=== PATIENT | female | born 1995 | race American Indian/Alaskan Native ===

== ENCOUNTER 2017-11-08 16:18 | Emergency (ER) | payer OTHER ==
[~2017-11-08] VITALS: Ht 177.8 cm; Wt 90.7 kg
[~2017-11-08 16:18] MED LIST: PEPCID20 MG PO; PNEU16DI2; PRENATABS FA T1 EACH
== END 2017-11-08 20:10 | disposition home or self-care (01) ==
LOC: ER 16:18
DX: O20.8 Other hemorrhage in early pregnancy (principal); Z34.81 Encounter for supervision of other normal pregnancy, first trimester

== ENCOUNTER 2017-11-16 03:36 | Emergency (ER) | payer OTHER ==
[~2017-11-16] VITALS: Ht 165.1 cm; Wt 79.4 kg
[2017-11-16] MEDS ORDERED: FOLIC ACID0.4 MG (03:56)
== END 2017-11-16 07:33 | disposition home or self-care (01) ==
LOC: ER 03:36
DX: O20.8 Other hemorrhage in early pregnancy (principal); Z34.81 Encounter for supervision of other normal pregnancy, first trimester

== ENCOUNTER → 2018-06-17 | Outpatient (CLI) | payer OTHER ==
[~2018-06-17] MED LIST changes: +FOLIC ACID0.4 MG; +PERCOCET 5-3251 EACH PO; +PRENATAL + DHA1 EAC1; +SURFAK240 M1 PO
== END | disposition home or self-care (01) ==
LOC: NST 22:12
DX: O48.0 Post-term pregnancy (principal); Z34.03 Encounter for supervision of normal first pregnancy, third trimester

== ENCOUNTER 2018-06-19 08:10 | Inpatient (IN) | payer OTHER ==
[~2018-06-19] VITALS: Ht 160 cm; Wt 3.6 kg
[~2018-06-19 08:10] MED LIST changes: -PERCOCET 5-3251 EACH PO; -SURFAK240 M1 PO
[2018-06-21] MEDS ORDERED: PERCOCET 5-3251 EACH PO (09:33)
[2018-06-21] MEDS ORDERED: SURFAK240 M1 PO (09:33)
== END 2018-06-21 14:23 | DRG 785 ==
LOC: LDR 08:10 → OB/GYN 08:10 → O/R 08:10 → LDR 13:22 → O/R 15:25 → OB/GYN 18:07
PROVIDERS: Specialist
PROC: 0UL70ZZ Occlusion of Bilateral Fallopian Tubes, Open Approach (ICD-10-PCS; 2018-06-19)
PROC: 3E033VJ Introduction of Other Hormone into Peripheral Vein, Percutaneous Approach (ICD-10-PCS; 2018-06-19)
PROC: 4A033R1 Measurement of Arterial Saturation, Peripheral, Percutaneous Approach (ICD-10-PCS; 2018-06-19)
PROC: 4A1HXCZ Monitoring of Products of Conception, Cardiac Rate, External Approach (ICD-10-PCS; 2018-06-19)
PROC: 10D00Z1 Extraction of Products of Conception, Low, Open Approach (ICD-10-PCS; principal; 2018-06-19 15:30)
DX: O76 Abnormality in fetal heart rate and rhythm complicating labor and delivery (principal); Z3A.41 41 weeks gestation of pregnancy; Z37.0 Single live birth; Z30.2 Encounter for sterilization